=== PATIENT | female | born 1965 | race Caucasian/White ===

== ENCOUNTER 2020-12-06 10:38 | Observation (INO) | payer SELFPAY ==
[2020-12-06] VITALS (18 sets, daily range): BP systolic 109–157; BP diastolic 59–90; PULSE 66–86; RESP 12–21; TEMP 36.7–36.8; O2SAT 96; BMI 20.5
--- NOTE | ~2020-12-06 | US_ITS ---
EXAMINATION: US carotid duplex BI DATE: 12/07/2020 11:29 INDICATION: Vertigo TECHNIQUE: Grayscale, color Doppler, and pulsed Doppler images of the cervical carotid arteries were obtained. The degree of vessel stenosis is placed in one of the following categories: normal, <50%, 5 0-69%, >=70% but less than near-occlusion, near-occlusion, or total occlusion. Note that percent sten osis relative to normal distal artery lumen diameter is indirectly measured from velocity measurement s as described by Garret, et al. Radiology 2003; 229:340-346. COMPARISON: Carotid CT angiogram dictated 12/06/2020 FINDINGS: RIGHT: The right common carotid artery (CCA) peak systolic velocity (PSV) is 76 cm/s. The right internal car otid artery (ICA) PSV is 70 cm/s. The right ICA end-diastolic velocity (EDV) is 18 cm/s. The right IC A/CCA PSV ratio is 0.9. Grayscale and color Doppler images yield an estimate of <50% diameter reducti on from minimal plaque in the ICA. The external carotid artery (ECA) PSV is 83 cm/s. There is antegra de flow in the right vertebral artery. LEFT: The left CCA PSV is 63 cm/s. The left ICA PSV is 76 cm/s. The left ICA EDV is 27 cm/s. The left ICA/C CA PSV ratio is 1.2. Grayscale and color Doppler images demonstrate no plaque or stenosis in the ICA. The ECA PSV is 68 cm/s. There is antegrade flow in the left vertebral artery. IMPRESSION: 1. <50% stenosis minimal plaque in the right internal carotid artery. 2. Normal left internal carotid artery. Reviewed, dictated and finalized at location A. [employer]
--- NOTE | ~2020-12-06 | CT_ITS ---
EXAMINATION: CTA BRAIN/CAROTID DATE: 12/06/2020 11:55 INDICATION: Dizziness. TECHNIQUE: Computed tomographic angiography (CTA) of the head and neck was performed with 100 mL Omni paque-350 intravenous contrast. Multiplanar reconstructions and maximum intensity projection 3D-recon structions of the carotid arteries and of the intracranial arteries were created by the technologist on a separate workstation. Precontrast CT of the head was also obtained. Automated exposure control and iterative reconstruction technique were employed.The dose-length product was 1489.35 mGy-cm. COMPARISON: None. FINDINGS: Carotid arteries: Small amount of atherosclerotic plaque without hemodynamically significant stenosis at the origins of the innominate and left subclavian arteries. There is no evident plaque with 0 % stenosis of the lef t and right carotid bulbs relative to normal distal artery lumen diameter (NASCET criteria). No evide nt plaque or stenosis along the codominant bilateral cervical vertebral arteries. Cervical soft tissu es are unremarkable. Mild emphysema in the bilateral upper lung zones with moderate biapical pleural- parenchymal scarring. Head: No acute intracranial hemorrhage, acute infarction or abnormal extra axial fluid collection. Ventricl es are normal and symmetric. No mass/mass effect. Callosal thickening in the bilateral ethmoid and ma xillary sinuses. The orbits and mastoid air cells are normal. No abnormally enhancing brain lesions. Intracranial arteries There is no hemodynamically significant stenosis in the vertebral, basilar and internal carotid arter ies. Vertebral arteries are codominant. There are no aneurysms identified. Both A1 and P1 segments a re patent. Cerebral arterial arborization appears symmetric. IMPRESSION: 1. 0% stenosis of the left and right carotid bulbs relative to normal distal artery lumen diameter (N ASCET criteria). 2. Normal brain. No acute intracranial process. 3. Normal cerebral angiogram. Reviewed, dictated and finalized at location A. DRAFTER IMPRESSION: 1. 0% stenosis of the left and right carotid bulbs relative to normal distal ar fred lumen diameter (NASCET criteria). 2. Normal brain. No acute intracranial process. 3. Normal cerebral angiogram.
--- NOTE | ~2020-12-06 | MR_ITS ---
EXAMINATION: MR brain/brain stem wo/w con DATE: 12/07/2020 11:12 INDICATION: Dizziness. Vertigo. TECHNIQUE: Magnetic resonance imaging (MRI) of the brain and brainstem was performed without and with 10 mL Multihance intravenous contrast. Sequences included sagittal and axial T1-weighted SE, axial d iffusion-weighted FS SE, axial T2*-weighted GRE, axial T2-weighted FLAIR, and axial T2-weighted FSE. Postcontrast axial and coronal T1-weighted SE was obtained. Apparent diffusion coefficient (ADC) maps were created. COMPARISON: Head CT and CT angiogram dated 12/06/2020 FINDINGS: There are no areas of restricted diffusion to suggest acute infarction. No intracranial hemorrhage or abnormal intracranial mass lesion. There are no intraparenchymal signal abnormalities seen on the ot her pulse sequences. The ventricles are symmetric and normal in size. There are no abnormal extra-axi al fluid collections. Flow voids are seen in the cerebral arteries on the T2-weighted sequences consi stent with their expected patency. Mild mucosal thickening in the bilateral ethmoid and maxillary sin uses. Visualized orbits and soft tissues are unremarkable. There are no areas of abnormal enhancement on the post contrast images. IMPRESSION: 1. Normal brain. No acute intracranial process. Reviewed, dictated and finalized at location A. [employer]ACH
--- NOTE | 2020-12-06 11:00 | ECG_ITS ---
Measurements Intervals [place] Rate: 65 P: 62 AL: 164 QRS: 74 QRSD: 103 T: 62 QT: 455 QTc: 475 Interpretive Statements SINUS RHYTHM MINIMAL Q WAVES- INFERIOR LEADS BORDERLINE ECG Electronically Signed On 12-06-2020 11:36:56 [employer] PERSON by Stephen Dickinson D.O.
--- NOTE | 2020-12-06 11:03 | ED.DIZZY ---
HPI - Dizziness General Chief Complaint: Dizziness Stated Complaint: N/V Time Seen by Provider: 12/06/20 10:47 Source: patient Mode of arrival: EMS Limitations: no limitations History of Present Illness HPI Narrative: This patient is a 55 year old female who presents for evaluation of dizziness and nausea. She states she was at work when she developed dizziness with nausea and vomiting. She describes her dizziness as spinning. Her symptoms are worse with movement. She was unable to walk due to her dizziness. Her symptoms started at 830 am this morning. She denies similar history in the past. She denies fever, ear ache, tinnitis, chest pain or sob. She denies numbness, tingling or focal weakness. MD elicited complaint: dizziness Related Data Home Medications Medication Instructions Recorded Confirmed No Home Medications 12/06/20 12/06/20 Allergies Allergy/AdvReac Type Severity Reaction Status Date / Time No Known Allergies Allergy Mild Verified 12/06/20 10:50 Review of Systems Review of Systems: All systems reviewed & are unremarkable except as noted in HPI and below Constitutional: Constitutional: Denies chills and Denies fever(s) Eyes: Eyes: Denies photophobia ENT: Reports vertigo, Reports dizziness, Denies nasal congestion and Denies sore throat Cardiovascular: Cardiovascular: Denies chest pain Respiratory: Respiratory: Denies cough and Denies dyspnea Gastrointestinal: Gastrointestinal: Denies abdominal pain, Denies diarrhea, Reports nausea and Reports vomiting Neurologic: Reports dizziness, Denies syncope, Denies headache(s), Denies focal weakness and Denies numbness PMFSH Past Medical History Medical History (Updated 12/06/20 @ 16:55 by Divya Blackwood MD) Patient denies medical problems Surgical History Surgical History (Updated 12/06/20 @ 11:10 by Divya Blackwood MD) Hx of tonsillectomy Social History Social History (Updated 12/06/20 @ 11:10 by Divya Blackwood MD) Smoking packs per day: 1 Smoking cigarettes per day: 20.0 Smoking status: Current every day smoker Exam Const: General: alert Nutritional Appearance: thin Orientation/consciousness: patient oriented x3 HENMT: Ears: TM's normal bilaterally Eyes: Sclera: sclerae normal Pupils: Equal, round and reactive pupils present EOM: EOMs intact bilaterally Other: nystagmus Chest: Chest palpation & inspection: normal inspection of the chest Resp: Effort & Inspection: normal respiratory effort and no retractions Auscultation: clear to auscultation bilaterally Cardio: Rate: regular rate Rhythm: regular rhythm Heart sounds: no murmurs GI: GI Palp: Yes Soft to palpation, No Tenderness to palpation present (GI) and No Guarding due to palpation present (GI) Auscultation: normal bowel sounds Skin: General skin exam: normal color Neuro: General: patient oriented x3, moves all extremities, no meningeal signs, no focal motor deficits and CN's II-XI intact bilaterally Cranial nerves: Yes Nystagmus present horizontal Speech: normal speech Gait exam (Neuro): Unable to assess gait Motor exam (neuro): 5/5 motor strength present throughout, Pronator motor function not present and No tremor noted Coordination: [id number] test normal and [id number] test normal Psych: Mental Status: mental status grossly normal Affect: normal affect Course Reevaluation(s) Reevaluation #1: Patient reports she feels somewhat better. She still has some dizziness. I attempted to get her up out of bed but she was unable to due to dizziness/vertigo. She is agreeable to admission Date: 12/06/20 Time: 15:00 Consultations Consultation #1: I discussed case with Sujata who accepts patient for observation. Date: 12/06/20 Time: 15:15 Vital Signs Vital signs: Vital Signs Temperature 98.3 F 12/06/20 10:39 Pulse Rate 78 12/06/20 10:39 Respiratory Rate 16 12/06/20 10:39 Blood Pressure 151/90 H 12/06/20 10:39 Pul
[2020-12-06] MEDS: ONDANSETRON INJ 4 MG/2 ML VIAL IV PUSH (11:11)
[2020-12-06] MEDS: LACTATED RINGERS 1,000 ML 999 ML IV CONT (11:11)
[2020-12-06 11:25] LABS: Basophils Percent Auto 0.5 % (0.2-1.2); Eosinophils Absolute Auto 0.1 K/mm3 (0-0.3); Eosinophils Percent Auto 1.8 % (0-4.4); Hematocrit 44.8 % (37.0-47.0); Hemoglobin 14.9 g/dL (12.0-15.0); Immature Granulocyte Absolute 0.02 K/mm3 (0.00-0.031); Immature Granulocyte Percent A 0.3 % (0-0.5); Lymphocytes Absolute Auto 1.71 K/mm3 (0.9-3.2); Lymphocytes Percent Auto 23.3 % (18.3-44.2); Mean Corpuscular HGB Conc 33.3 g/dl (32-36); Mean Corpuscular Hemoglobin 33.9 pg (26-34); Mean Corpuscular Volume 102.1 fl (80-100); Mean Platelet Volume 8.5 fl (7.4-10.4); Monocytes Absolute Auto 0.6 K/mm3 (0.1-0.6); Monocytes Percent Auto 8.2 % (2.6-8.5); Neutrophils Absolute Auto 4.9 K/mm3 (1.3-6.7); Neutrophils Percent Auto 65.9 % (45.5-73.1); Platelet Count Result 227 k/mm3 (150-375); Red Blood Count 4.39 M/mm3 (4.2-5.4); Red Cell Distribution Width 11.7 % (11.5-14.5); White Blood Count 7.4 K/mm3 (4.5-10.0)
[2020-12-06 11:37] LABS: INR 0.9; Prothrombin Time 12.6 Seconds (11.1-14.7)
[2020-12-06 11:38] LABS: Partial Thromboplastin Time 29.2 SECONDS (22.3-36.8)
[2020-12-06 11:41] LABS: Alanine Aminotransferase 21 U/L (4-35); Albumin Level 4.3 g/dL (3.5-5.1); Alkaline Phosphatase 64 U/L (38-126); Anion Gap 4 mmol/L (8-16); Aspartate Amino Transferase 29 U/L (14-36); Bilirubin,Total 0.3 mg/dL (0.2-1.3); Blood Urea Nitrogen 13 mg/dL (7-17); Calcium 8.8 mg/dL (8.4-10.2); Carbon Dioxide 31 mmol/L (22-30); Chloride 104 mmol/L (98-107); Estimated Glomerular Filt Rate > 60; Glucose 126 mg/dL (65-105); Potassium 4.2 mmol/L (3.4-5.0); Sodium 139 mmol/L (137-145)
[2020-12-06 11:53] LABS: Troponin I < 0.012 ng/mL (0.000-0.034)
[2020-12-06] MEDS: MECLIZINE HCL 25 MG TABLET PO ×2 (12:01→15:34)
[2020-12-06 12:23] LABS: Add Urine Microscopic? YES; Amorphous Sediment Urine Few; Appearance Urine Clear (Clear); Bilirubin Urine Negative (Negative); Blood Urine Negative (Negative); Color Urine Yellow (Yellow); Glucose Urine UA Negative (Negative); Ketones Urine Negative (Negative); Leukocyte Esterase Ur Negative LEU/UL (Negative); Mucus Urine Rare /lpf; Nitrate Urine Negative (Negative); Protein Urine 1+ mg/dL (Negative); Squamous Epithelial Cell Urine Occasional /hpf (Few); Urobilinogen Urine Negative mg/dL (<2.0); WBC Urine 0-3 /hpf
[2020-12-06 12:31] LABS: Specific Grav Ur 1.034 (1.001-1.035)
[2020-12-06] MEDS: PROMETHAZINE HCL 25 MG/ML AMPUL 12.5 MG IV PUSH (14:11)
[2020-12-06] MEDS: LORazepam (*CRX) 0.5 MG TABLET PO (14:11)
--- NOTE | 2020-12-06 19:17 | PC.NURSE ---
Bedside report received from MYAH Zepeda. Pt resting on stretcher, states that her dizziness is still present but has improved since arrival. States nausea has improved and is requesting ice chips po at this time. Pt made aware of boarded status and busy floors.
--- NOTE | 2020-12-06 20:00 | PC.NURSE ---
ice chips po and pt's SBAR faxed as room received.
--- NOTE | 2020-12-06 20:20 | ADMGEN ---
This patient, Debbie Hart, was admitted to Medical Room 340-01. Patient/family oriented to hospital policies and general routines including ID bracelet, bed and alarms, visiting hours, pain management, procedures, bathroom and other care routines, personal items, smoking policy, room service/diet, and visiting hours. Information on how to activate the Rapid Response Team has been discussed. Patient/Family are encouraged to report perceived risks to care and to ask questions if they do not understand what they are told or what they should do.
[2020-12-06] MEDS: SODIUM CHLORIDE 0.9% IV 1,000 ML 125 ML IV CONT (20:30)
--- NOTE | 2020-12-06 23:41 | PM.IMHP ---
H&P: HPI History of Present Illness Date/Time: 12/06/20 23:41 Chief Complaint: Dizziness Narrative: Debbie Hart is a 55 year old female who works at [employer]. The patient started to feel funny yesterday at work. The patient has severe dizziness and thought that maybe her blood sugar was low so she attempted to eat some mm candy and drank a Coke she immediately vomited. She vomited multiple times. The patient denied any blood in her emesis. Patient was unable to walk today due to her dizziness. Head neck CT a showed 0% stenosis of left and right carotid polyps relative to normal distal artery lumen diameter. Normal brain no acute intracranial process. Normal cerebral angiogram. Blood sugar was noted to be 126. Patient was started on IV fluids, Zofran, Antivert, Phenergan, and Ativan. Patient had lateral nystagmus. Patient is being admitted for observation on the date of service of 12/06/2020. Review of Systems Review of Systems: All systems reviewed & are unremarkable except as noted in HPI and below Constitutional: Constitutional: Reports as per HPI and Reports no additional constitutional complaints Eyes: Eyes: Reports as per HPI and Reports no additional eye complaints ENT: Reports system reviewed and no additional complaints, except as documented and Reports Normal hearing present Cardiovascular: Cardiovascular: Reports no additional cardiovascular complaints Respiratory: Respiratory: Reports no additional respiratory complaints and Reports no additional respiratory complaints Gastrointestinal: Gastrointestinal: Reports as per HPI and Reports no additional gastrointestinal complaints Musculoskeletal: Musculoskeletal: Reports no additional musculoskeletal complaints Integumentary/Breasts: Skin/Breast: Reports system reviewed and no additional complaints, except as docu and Reports as per HPI Neurologic: Reports system reviewed and no additional complaints, except as documented, Reports as per HPI and Reports Normal hearing present Psychiatric: Psychiatric: Reports no additional psychiatric complaints and Reports as per HPI Endocrine: Endocrine: Reports no additional endocrine complaints Hematologic/Lymphatic: Hematologic/Lymphatic: Reports no additional hematologic/lymphatic complaints Allergic/Immunologic: Allergic/Immunologic: Reports no additional allergic/immunologic complaints [facility] Past Medical History Medical History (Updated 12/06/20 @ 23:55 by Sujata Corbett NP) Patient denies medical problems Surgical History Surgical History Hx of tonsillectomy Family History Family History Grandparent Chronic obstructive pulmonary disease Son Asthma Father Leukemia Social History Social History (Updated 12/06/20 @ 23:58 by Sujata Corbett NP) Social History: The patient lives with her and she does not have a durable [id number] a day. She is full code. The patient smokes about a pack a cigarettes a day anemia. She denies any marijuana alcohol or illicit drugs. She has 4 children. Smoking packs per day: 1 Smoking cigarettes per day: 20.0 Years smoked: 38 Smoking pack-years: 38.00 Smoking status: Current every day smoker Tobacco type: cigarettes Alcohol intake: current Drinks per week: 12 Substance use: never Gender identity (if verbalized by the patient): Female Spiritual care concerns: No Meds Home Medications and Allergies Home Medications Medication Instructions Recorded Confirmed Type No Home Medications 12/06/20 12/06/20 History Allergies Allergy/AdvReac Type Severity Reaction Status Date / Time No Known Allergies Allergy Mild Verified 12/06/20 20:31 Vital Signs Vital Signs - 24 hr 12/06/20 10:39 12/06/20 11:15 12/06/20 11:30 Temperature 36.8 C Pulse Rate 78 71 70 Respiratory Rate 16 16 17
[2020-12-07] VITALS (9 sets, daily range): BP systolic 129–150; BP diastolic 67–80; PULSE 64–88; RESP 16–18; TEMP 36.5–36.7; O2SAT 94–100
--- NOTE | 2020-12-07 | ECHO_ITS ---
Patient Info Name: Debbie Hart Age: 55 years : 1965 Gender: Female Ht: 63 in Wt: 116 lbs BSA: 1.53 m2 HR: 70 bpm BP: 141 / 70 mmHg Heart Rhythm: Sinus Rhythm Technical Quality: Good Exam Date: 12/07/2020 9:22 AM Exam Location: [facility] Patient Status: Inpatient Admit Date: 12/06/2020 Staff Ordering Physician: Sujata Corbett NP Gateman: Vitaly Mariscal RDCS Attending Provider: Rosa Lackey PA-C Referring Physician: Chelle MISHRA; Exam Type: CA echo doppler color flow Study Info Indications 386.2 - Vertigo of Central Origin Complete two-dimensional, color flow and Doppler transthoracic echocardiogram is performed. Strain analysis performed. History/Risk Factors Vertigo and dizziness; Mitral Valve Prolapse. Prior Interventions PCI: Yes Summary 1. Complete two-dimensional, color flow and Doppler transthoracic echocardiogram is performed. 2. Left ventricular chamber dimension is normal. 3. Left ventricular systolic function is normal, estimated at 60-65%. 4. The left ventricular diastolic function is abnormal. 5. E/e' 10 is mildly elevated. 6. Global longitudinal strain is normal at -21.3%. 7. Left atrial chamber dimension is mildly enlarged. 8. The mitral valve has mildly thickened leaflets and redundant posterior leaflet.. 9. Mild posterior mitral valve prolapse. 10. There is trace mitral valve regurgitation. Left Ventricle E/e' 10 is mildly elevated. Global longitudinal strain is normal at -21.3%. Left ventricular chamber dimension is normal. Left ventricular systolic function is normal, estimated at 60-65%. The left ventricular diastolic function is abnormal. Right Ventricle Right ventricular chamber dimension is normal. Right ventricular systolic function is normal. Left Atria Left atrial chamber dimension is mildly enlarged. Right Atria Right atrial chamber dimension is normal. Aortic Valve The aortic valve is trileaflet. There is no aortic valve stenosis. There is no aortic valve regurgitation. Pulmonic Valve There is no pulmonic regurgitation. Mitral Valve The mitral valve has mildly thickened leaflets and redundant posterior leaflet.. Mild posterior mitral valve prolapse. There is no mitral valve stenosis. There is trace mitral valve regurgitation. Tricuspid Valve There is no tricuspid valve regurgitation. Pericardium/Pleural There is no pericardial effusion. Inferior Vena Cava Normal inferior vena cava with >50% collapse upon inspiration consistent with normal right atrial pressure, 5 mmHg. Aorta The aortic root size at the sinus of Valsalva is normal. Tricuspid Valve Name Value Normal Estimated PAP/RSVP RA Pressure 5 mmHg <=5 Report Signatures
[2020-12-07] MEDS: SODIUM CHLORIDE 0.9% IV 1,000 ML 125 ML IV CONT (04:27)
[2020-12-07] MEDS: MECLIZINE HCL 25 MG TABLET PO ×2 (09:35→20:13)
[2020-12-07 10:11] LABS: Hematocrit 41.7 % (37.0-47.0); Hemoglobin 13.8 g/dL (12.0-15.0); Mean Corpuscular HGB Conc 33.1 g/dl (32-36); Mean Corpuscular Hemoglobin 34.2 pg (26-34); Mean Corpuscular Volume 103.2 fl (80-100); Mean Platelet Volume 8.7 fl (7.4-10.4); Platelet Count Result 213 k/mm3 (150-375); Red Blood Count 4.04 M/mm3 (4.2-5.4); Red Cell Distribution Width 11.8 % (11.5-14.5); White Blood Count 7.1 K/mm3 (4.5-10.0)
[2020-12-07 10:27] LABS: Anion Gap 2 mmol/L (8-16); Blood Urea Nitrogen 9 mg/dL (7-17); Calcium 8.5 mg/dL (8.4-10.2); Carbon Dioxide 32 mmol/L (22-30); Chloride 106 mmol/L (98-107); Estimated CRCL calculation 66 ml/min; Estimated Glomerular Filt Rate > 60; Glucose 184 mg/dL (65-105); Potassium 3.9 mmol/L (3.4-5.0); Sodium 140 mmol/L (137-145)
--- NOTE | 2020-12-07 14:36 | PM.IMPN ---
Progress Note: A&P Assessment and Plan (1) Vertigo: Code(s): R42 - Dizziness and giddiness Status: Acute Assessment and Plan: Patient reports dizziness, especially with positional changes. She has not had any improvement with meclizine. Echocardiogram performed which showed normal ejection fraction and no significant valvular disease, carotid Doppler showed <50% stenosis in right internal carotid artery and normal left internal carotid artery. head/neck CTA showed 0% stenosis of bilateral carotid bulbs and normal brain with no acute process. Brain MRI with no acute findings. Suspect this is secondary to benign paroxysmal positional vertigo. She is not orthostatic. Continue meclizine p.r.n. Continue antiemetics p.r.n. I have spoken with vestibular physical therapist who will evaluate the patient and perform vestibular maneuvers to hopefully reduce vertigo. She will also need outpatient vestibular rehab. Appreciate PT eval Discontinue IV fluids as patient has been adequately rehydrated (2) Tobacco abuse: Code(s): Z72.0 - Tobacco use Status: Chronic Assessment and Plan: She smokes 1 pack per day. She declined need for nicotine patch. Continue to encourage smoking cessation Subjective Date/time seen: 12/07/20 14:36 Interval history: Date of service: 12/07/20 Debbie Hart is a 55 year old female with history of tobacco abuse is seen in follow-up for vertigo. Appears to be worsened with positional changes. She states that she feels like her head is floating and spinning around. She does not feel that she can walk steadily due to her dizziness. She was having nausea due to this but this has resolved. She denies ear pain or hearing loss/changes. No tinnitus. She denies any visual changes. She denies feeling weakness. Her appetite is poor which she reports is typical for her and she does not usually eat very much. She reports that she has been drinking plenty of water. She denies abdominal pain, vomiting, fever, chills. Denies shortness of breath, cough, or chest pain. She does not have a headache. Denies body aches. No additional concerns at this time. She does not feel that she can safely return home as she does not feel that she can walk or safely care for herself given her symptoms. Review of Systems Review of Systems: All systems reviewed & are unremarkable except as noted in HPI and below Exam Narrative: Exam Narrative: Ms. Hart is a thin, well-appearing 55-year-old female who is lying semi recumbent in bed. She appears comfortable and is in NARD. HR 80, BP 141/70, RR 17, T 97.8?, 94% on room air Neuro: awake, alert and oriented x4, speech clear, CN II-XII intact, strength 5/5 throughout, sensation intact, bilateral geology teacher strength equal HEENMT: normocephalic, atraumatic, EOMI, sclerae anicteric, moist oral mucosa, tongue midline, nares patent Neck: supple, no lymphadenopathy Respiratory: clear to auscultation bilaterally, nonlabored breathing Cardio: regular rate, regular rhythm with S1-S2 Abdomen: nondistended, normoactive bowel sounds, soft, nontender to palpation, no rigidity or guarding Extremities: no edema, erythema, cyanosis, clubbing, or tenderness to palpation, DP pulses 2+ bilaterally Skin: no rashes or lesions, warm and dry Psych: appropriate mood and affect, judgment and insight intact Objective Data Vital Signs Vital Signs: Vital Signs - 24 hr 12/06/20 15:15 12/06/20 15:32 12/06/20 15:46 Temperature Pulse Rate 67 86 74 Respiratory Rate 16 20 16 Blood Pressure 109/64 157/81 H 135/85 Pulse Oximetry 12/06/20 16:15 12/06/20 16:30 12/06/20 17:00 Temperature Pulse Rate 71 71 66 Respiratory Rate 18 16 18 Blood Pressure 126/66 118/59 L 125/71 Pulse Oximetry 12/06/20 18:45 12/06/20 19:01 12/06/20 19:30 Temperature Pulse Rate 71 Respiratory Rate 17 Blood Pressure 110/64 115/68 128/78 Pulse Oximetry
[2020-12-08 05:58] LABS: Basophils Percent Auto 0.5 % (0.2-1.2); Eosinophils Absolute Auto 0.3 K/mm3 (0-0.3); Eosinophils Percent Auto 3.3 % (0-4.4); Hematocrit 42.2 % (37.0-47.0); Hemoglobin 13.8 g/dL (12.0-15.0); Immature Granulocyte Absolute 0.03 K/mm3 (0.00-0.031); Immature Granulocyte Percent A 0.4 % (0-0.5); Lymphocytes Absolute Auto 3.55 K/mm3 (0.9-3.2); Lymphocytes Percent Auto 43.5 % (18.3-44.2); Mean Corpuscular HGB Conc 32.7 g/dl (32-36); Mean Corpuscular Hemoglobin 33.4 pg (26-34); Mean Corpuscular Volume 102.2 fl (80-100); Mean Platelet Volume 8.8 fl (7.4-10.4); Monocytes Absolute Auto 0.8 K/mm3 (0.1-0.6); Monocytes Percent Auto 9.3 % (2.6-8.5); Neutrophils Absolute Auto 3.5 K/mm3 (1.3-6.7); Platelet Count Result 211 k/mm3 (150-375); Red Blood Count 4.13 M/mm3 (4.2-5.4); Red Cell Distribution Width 11.7 % (11.5-14.5); White Blood Count 8.2 K/mm3 (4.5-10.0)
[2020-12-08 06:00] VITALS: BP 140/87; PULSE 74; RESP 16; TEMP 35.8; O2SAT 96
[2020-12-08 06:07] LABS: Alanine Aminotransferase 21 U/L (4-35); Albumin Level 3.5 g/dL (3.5-5.1); Alkaline Phosphatase 49 U/L (38-126); Anion Gap 3 mmol/L (8-16); Aspartate Amino Transferase 29 U/L (14-36); Bilirubin,Total 0.7 mg/dL (0.2-1.3); Blood Urea Nitrogen 7 mg/dL (7-17); Calcium 8.7 mg/dL (8.4-10.2); Carbon Dioxide 30 mmol/L (22-30); Chloride 107 mmol/L (98-107); Estimated CRCL calculation 76 ml/min; Estimated Glomerular Filt Rate > 60; Glucose 95 mg/dL (65-105); Lactate Dehydrogenase 298 U/L (313-618); Magnesium 1.7 mg/dL (1.6-2.3); Sodium 140 mmol/L (137-145)
[2020-12-08] MEDS: ONDANSETRON INJ 4 MG/2 ML VIAL IV PUSH (08:26)
[2020-12-08] MEDS: MECLIZINE HCL 25 MG TABLET PO (08:27)
--- NOTE | 2020-12-08 11:45 | PCPTNOTE ---
Attempted to see patient for physical therapy this morning in order to evaluate patient's functional mobility, however patient refused due to reporting not feeling well and still having dizziness. Physical therapist educated purpose of assessing patient's mobility out of bed and focus on how to adapt to mobility given her continued dizziness. Despite education, patient continued to refuse. Will re-attempt assessment this afternoon. RN updated and aware. Sujata Caba, PT, DPT
[2020-12-08] MEDS: ACETAMINOPHEN 325 MG TABLET 650 MG PO (14:37)
[2020-12-08 14:46] VITALS: BP 129/71; PULSE 71; RESP 18; TEMP 36.7; O2SAT 97
--- NOTE | 2020-12-08 15:33 | PM.DS ---
DS: Admitting Diagnosis Admitting Diagnosis Admitting Diagnosis: Dizziness DS: Discharge Diagnosis Discharge Diagnosis (1) BPPV (benign paroxysmal positional vertigo): Code(s): H81.10 - Benign paroxysmal vertigo, unspecified ear Status: Acute Assessment and Plan: Patient reports dizziness that she describes as spinning sensation, especially with positional changes. Echocardiogram performed which showed normal ejection fraction and no significant valvular disease, carotid Doppler showed <50% stenosis in right internal carotid artery and normal left internal carotid artery. head/neck CTA showed 0% stenosis of bilateral carotid bulbs and normal brain with no acute process. Brain MRI with no acute findings. She was not orthostatic. She did not have ear pain or tinnitus. Findings felt to be most consistent with BPPV. She did not have improvement with meclizine. She was evaluated by PT who performed vestibular evaluation which appeared to be consistent with BPPV. She will continue with vestibular rehab as an outpatient. Given her dizziness, fall precautions were discussed. She felt most comfortable ambulating with a walker and was encouraged to continue using a walker as needed for dizziness. (2) Nodule of external ear: Code(s): H61.899 - Other specified disorders of external ear, unspecified ear Status: Acute Assessment and Plan: She had an approximately 3 mm, round, firm, nontender nodule on her left posterior ear lobe. This was not bothersome to her and was incidentally noted on physical exam while evaluating ears due to dizziness. Given the external location, I do not feel this is likely to be contributing to her dizziness. She should follow up with her PCP for further monitoring and can consider referral to plastic surgery for evaluation/removal if this were to become bothersome or increase in size. (3) Tobacco abuse: Code(s): Z72.0 - Tobacco use Status: Chronic Assessment and Plan: She smokes 1 pack per day. She declined need for nicotine patch. She was educated on smoking cessation for 5 minutes. She is not interested in quitting smoking at this time. DS: Summary Hospital Course Reason for hospitalization: dizziness Hospital Course: Date of admission: 12/06/2020 Date of discharge: 12/08/2020 Debbie Hart is a 55 year old female with history of tobacco abuse who presented to the emergency department on 12/06/2020 with complaints of dizziness in which she felt she was spinning. She did develop nausea at the onset of dizziness. She did not have ear pain, numbness, tingling, headache, confusion, or weakness. upon presentation to the emergency department, her vital signs were stable, CBC and BMP unremarkable, troponin negative, head/neck CTA showed 0% stenosis of the bilateral carotid bulb. She was admitted to the hospitalist service for further evaluation and management. Please see above for further details. Her dizziness was felt to be secondary to BPPV. She was evaluated by PT and will continue with vestibular rehab with referral provided. Her dizziness persisted, but she did feel improved and felt comfortable with returning home. She reports family support at home to help her if she has difficulty with ambulation. We discussed that she will need to establish care with a primary care physician as soon as possible and she was given a list of providers. She was referred to the on-call PCP for hospital follow up. She was determined to no longer require inpatient care and felt to be stable for discharge. We discussed worrisome signs and symptoms for which to return and she was educated on her medications. She was discharged in hemodynamically stable condition on 12/08/20. Status at Discharge Functional status at discharge: independent ambulation Overall status at discharge: patient is progressing back to baseline Time Spent with Patient Time attestation: Total time spent providing and/or
== END 2020-12-08 17:25 | disposition home or self-care (01) ==
LOC: ANHED 16:55 → ANH3MEDSUR 19:12 → ANH3MED 20:12
PROVIDERS: Nurse Practitioner; Physician Assistant; Admitting Provider Family Medicine; Emergency Provider General Practice; Visit Provider Internal Medicine
DX: H81.10 Benign paroxysmal vertigo, unspecified ear (principal); H61.899 Other specified disorders of external ear, unspecified ear; I34.1 Nonrheumatic mitral (valve) prolapse; I65.21 Occlusion and stenosis of right carotid artery; F17.210 Nicotine dependence, cigarettes, uncomplicated
CPT/HCPCS: 36415; 70496; 70498; 70553; 80048; 80053; 81001; 83615; 83735; 84443; 84484; 85025; 85027; 85610; 85730; 93005; 93306; 93880; 96361; 96374; 96375; 96376; 97161; 99285; A9270; A9577; G0378; G0379; J2405; J2550; J7030; J7120; Q9967